=== PATIENT | male | born 1955 | race Caucasian/White ===

== ENCOUNTER → 2024-03-01 11:45 | Outpatient (REF) | payer MEDICARE, SELFPAY | LOC: HWRAD 11:45 | PROVIDERS: ATTENDING PHYSICIAN Internal Medicine Cardiovascular Disease; FAMILY PHYSICIAN Family Medicine | DX: Z13.6 Encounter for screening for cardiovascular disorders (principal); Z82.49 Family history of ischemic heart disease and other diseases of the circulatory system | CPT/HCPCS: 75571 ==

== ENCOUNTER → 2024-03-28 06:21 | Day surgery (SDC) | payer MEDICARE, SELFPAY | LOC: GI 06:21 | PROVIDERS: ATTENDING PHYSICIAN Internal Medicine Gastroenterology | DX: Z12.11 Encounter for screening for malignant neoplasm of colon (principal); K64.8 Other hemorrhoids; Z86.0100 Personal history of colon polyps, unspecified | CPT/HCPCS: 43239; G0105; 88305; 88312 ==